=== PATIENT | female | born 1975 | race Two or more races ===

== ENCOUNTER 2024-06-22 10:14 | Emergency (ER) | payer OTHER ==
[~2024-06-22] VITALS: Ht 152.4 cm; Wt 56.7 kg
[2024-06-22 10:59] LABS: BASOPHILS % (AUTO) 0.6 % (0.0-2.0); EOSINOPHILS % (AUTO) 0.4 % (0.0-6.0); HEMATOCRIT 41 % (33-45); HEMOGLOBIN 13.6 g/dL (11.5-14.8); LYMPHOCYTES # (AUTO) 1.8 K/uL (0.8-4.8); LYMPHOCYTES % (AUTO) 22.9 % (20.0-44.0); MEAN CORPUSCULAR HEMOGLOBIN 28 PG (26.0-33.0); MEAN CORPUSCULAR HGB CONC 33 g/dl (31.0-36.0); MEAN CORPUSCULAR VOLUME 85 fL (82-100); MONOCYTES # (AUTO) 0.6 K/uL (0.1-1.30); MONOCYTES % (AUTO) 7.7 % (2.0-12.0); NEUTROPHILS # (AUTO) 5.4 K/uL (1.8-8.9); NEUTROPHILS % (AUTO) 68.4 % (43.0-81.0); PLATELET COUNT (AUTO) 276 K/uL (150-450); RED CELL DISTRIBUTION WIDTH 14.1 % (11.5-15.0); WHITE BLOOD COUNT (AUTO) 7.9 K/uL (4.3-11.0)
[2024-06-22 11:12] LABS: CALCIUM, SERUM 9.3 mg/dL (8.5-10.1); CARBON DIOXIDE 27 mmol/L (21-32); CHLORIDE 107 mmol/L (98-107); CREATININE 0.9 mg/dL (0.6-1.3); GLUCOSE 100 mg/dL (74-106); POTASSIUM 4.1 mmol/L (3.5-5.1); SODIUM SERUM 142 mmol/L (136-145); UREA NITROGEN, BLOOD 23 mg/dL (7-18)
[2024-06-22 11:24] LABS: NT-PRO BNP 48 pg/mL (0-125)
[2024-06-22] MEDS ORDERED: LORAZEPAM INJ 2 MG/ML VIAL ONE (11:29)
[2024-06-22] MEDS ORDERED: ONDANSETRON HCL/PF 4 MG/2 ML VIAL ONE (11:29)
[2024-06-22] MEDS: ONDANSETRON HCL/PF - ER 4 MG/2 ML VIAL IV ONE (11:35)
[2024-06-22] MEDS: LORAZEPAM INJ 2 MG/ML VIAL IV ONE (11:35)
[2024-06-22] MEDS ORDERED: LORA-258 PO (13:08)
[2024-06-22 13:37] VITALS: BP 120/74; TEMP 98; O2SAT 99
== END 2024-06-22 13:39 | disposition home or self-care (01) ==
LOC: ER 10:21
DX: F41.0 Panic disorder [episodic paroxysmal anxiety] (principal); R07.89 Other chest pain
CPT/HCPCS: 99285; 96374; 71045; 96375; 93005; 85025; 80048; 36415; 84484 ×2; 83880; J2060; J2405 ×2